=== PATIENT | female | born 1945 | race Caucasian/White ===

== ENCOUNTER 2019-05-15 19:36 | Emergency (ER) | payer MEDICARE, OTHER ==
[~2019-05-15] VITALS: Ht 162.5 cm; Wt 91.8 kg
--- NOTE | 2019-05-15 19:59 | ED Lower Extremity ---
General Chief Complaint: Trauma-Non Activation Stated Complaint: FELL Source: patient History of Present Illness Date Seen by Provider: May 15, 2019 Time Seen by Provider: 19:59 Initial Comments 73-year-old female presenting with complaints of swelling and blisters to the right big toe. She was flying back from [facility] yesterday and had ac cidentally stubbed her toe getting on the plane. In the process she has had some swelling to the right toe. She was not having any severe pain with this. She does have bruising to the right toe and some swelling. She is diabetic and had noticed that tonight after being up on her feet all day she had 2 large blisters that have formed on her big toe in addition to the bruising and swelling. She is still was not having any pain in the toe. She was concerned about infection due to her diabetes so she came to the emergency department. She has no redness or streaking up her foot. There is no drainage from the blisters. Allergies and Home Medications Allergies Coded Allergies: acetaminophen (Verified Allergy, Unknown, 05/15/19) codeine (Verified Allergy, Unknown, 05/15/19) ibuprofen (Verified Allergy, Unknown, 05/15/19) Patient Home Medication List Home Medication List Reviewed: Yes Review of Systems Constitutional: No chills, No fever, No malaise EENTM: no symptoms reported Respiratory: no symptoms reported Cardiovascular: no symptoms reported Gastrointestinal: no symptoms reported Genitourinary: no symptoms reported Musculoskeletal: see HPI Skin: see HPI Psychiatric/Neurological: Denies Weakness Past Cnxhmnl-Ztwsib-Vczjgw Hx Past Med/Social Hx: Reviewed Nursing Past Med/Soc Hx Patient Social History Recent Foreign Travel: No Contact w/Someone Who Travel: No Past Medical History Respiratory: No Hypertension Neurological: Yes Endocrine: Yes Diabetes, Insulin dep Physical Exam Vital Signs Vital Signs - First Documented 05/15/19 19:46 Temp 36.3 Pulse 84 Resp 18 B/P (MAP) 187/89 (121) Pulse Ox 96 O2 Delivery Room Air Capillary Refill : Height, Weight, BMI Height: '" Weight: lbs. oz. kg; BMI Method: General Appearance: WD/WN, no apparent distress Cardiovascular: normal peripheral pulses, regular rate, rhythm Feet: right foot non-tender, right foot normal range of motion, right foot ecchymosis (especially to the right big toe), right foot swelling (right big toe and MTP joint where she has bruising.), right foot other (to fluid-filled blisters between right big toe and 2nd toe. No erythema or streaking around them. No purulence or fluctuance noted.) Neurologic/Psychiatric: alert, normal mood/affect, oriented x 3 Skin: warm/dry, ecchymosis (right big toe and MTP joint area) Progress/Results/Core Measures Results/Orders My Orders Orders - BESSY PITTS MD Toe(S) (05/15/19 20:15) Vital Signs/I&O 05/15/19 05/15/19 19:46 21:13 Temp 36.3 36.3 Pulse 84 84 Resp 18 18 B/P (MAP) 187/89 (121) 187/89 (121) Pulse Ox 96 96 O2 Delivery Room Air Progress Progress Note #1: Progress Note Obtain x-ray of the right big toe to evaluate for possible occult fracture. Progress Note #2: Progress Note Arthritic changes are seen but no obvious occult fracture. Will treat with a postop shoe to keep pressure off of the swollen big toe and the blisters. Counseled on wound care of the blisters and toe watch for signs of infection. Diagnostic Imaging Diagonstic Imaging: Xray Plain Films/CT/US/NM/MRI: other (toe) Comments NAME: ERNESTINE LEWIS [facility] REC#: [id number] PT STATUS: REG ER : 1945 PHYSICIAN: BESSY PITTS MD ADMIT DATE: 05/15/19/ER FS Draft Date of Exam:05/15/19 TOE(S) INDICATION: Pain COMPARISON: None available TECHNIQUE: 3 radiographs of the right foot toes dated 05/15/2019 FINDINGS: No acute fracture or dislocation. No destructive osseous process. 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 No suspicious radiopaque foreign body. 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 Dictated on workstation # [id number] Dict: 05/15/192024 Trans: 05/15/19 Milo PIERCE [id number] Interpreted by: KING OSWALD MD Electronically signed by: Departure Impression Primary Impression: Contusion of right great toe without damage to nail, initial encounter Additional Impression: Blister of toe of right foot without infection Qualified Codes: S90.424A - Blister (nonthermal), right lesser toe(s), initial encounter Disposition: 01 HOME, SELF-CARE Condition: Stable Departure-Patient Inst. Decision time for Depature: 21:05 Referrals: SEAN VASQUEZ APRN (PCP/Family) Primary Care Physician Patient Instructions: Blisters, Toe Injury (DC) Add. Discharge Instructions: Use the post op shoe on right foot to keep from putting pressure on your big toe until the blisters have healed. If you see redness streaking up your foot or have pus draining from your toe and the blisters then follow up with clinic or return to be started on antibiotics Keep the blisters and the area on your toe clean with soap and water. Apply antibiotic ointment 2-3 times a day and may apply a non stick dressing to the blisters and spot on your toe to help keep it from getting infected. All discharge instructions reviewed with patient and/or family. Voiced understanding. Images Extremities-Lower 1 - Other-See Progress Note (area of 2 blisters between Big toe and 2nd toe on right foot) BESSY PITTS MD May 15, 2019 19:59
--- NOTE | 2019-05-15 20:30 | Diagnostic Imaging Report ---
INDICATION: Pain COMPARISON: None available TECHNIQUE: 3 radiographs of the right foot toes dated 05/15/2019 FINDINGS: No acute fracture or dislocation. No destructive osseous process. 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 No suspicious radiopaque foreign body. 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 Dictated by: Dictated on workstation # [id number]
[2019-05-15 21:13] VITALS: BP 187/89
== END 2019-05-15 21:13 | disposition home or self-care (01) ==
LOC: ER FS 19:39
DX: S90.111A Contusion of right great toe without damage to nail, initial encounter (principal); S90.421A Blister (nonthermal), right great toe, initial encounter; I10 Essential (primary) hypertension; Z88.6 Allergy status to analgesic agent; Z88.5 Allergy status to narcotic agent; W22.8XXA Striking against or struck by other objects, initial encounter
CPT/HCPCS: 73660

== ENCOUNTER → 2020-02-15 | Outpatient (CLI) | payer MEDICARE, OTHER ==
--- NOTE | 2020-02-15 14:02 | Diagnostic Imaging Report ---
PROCEDURE: CT head without contrast. TECHNIQUE: Multiple contiguous axial images were obtained through the brain without the use of intravenous contrast. Auto Exposure Controls were utilized during the CT exam to meet ALARA standards for radiation dose reduction. INDICATION: Double vision for one week. COMPARISON: No prior studies are available for comparison. FINDINGS: The ventricles and sulci are appropriate for the patient's age. No sulcal effacement or midline shift is identified. No acute intra-axial or extra-axial hemorrhage is detected. Cisterns are patent. Visualized paranasal sinuses are clear. IMPRESSION: No acute intracranial process is detected. Dictated by: Dictated on workstation # [id number]
== END ==
LOC: RAD FS 13:01
PROVIDERS: ATTEND Nurse Practitioner Family
DX: H53.2 Diplopia (principal)
CPT/HCPCS: 70450

== ENCOUNTER 2023-01-11 07:50 | Day surgery (SDC) | payer MEDICARE, OTHER ==
--- NOTE | 2022-12-29 03:15 | HISTORY AND PHYSICAL ---
COLONOSCOPY HISTORY AND PHYSICAL HISTORY OF PRESENT ILLNESS: The patient is a pleasant 77-year-old white female referred by Amelia Patricio APRN, at [facility], for screening colonoscopy. She is deemed to be of higher than average risk because she reports family history for colon cancer, index case being her grandfather. She has had one other colonoscopy done over 10 years ago that she recalls was unremarkable. She denies any change in bowel habits. She has been told that she has irritable bowel syndrome and has fluctuated between loose stools and constipation, but nothing that has been out of the ordinary for her. She has had no melena or bright red blood per rectum and denies any significant change in weight. PAST MEDICAL HISTORY: Pertinent for type 2 diabetes for which she takes 4.5 mg of Trulicity weekly, hypertension and hyperlipidemia with no known history of coronary artery disease. Other medications include atorvastatin 40 mg daily, lisinopril 5 mg daily, L-thyroxine 100 mcg daily, 81 mg Rosalba aspirin daily for possible TIA, presenting as double vision in 2019 and she also takes zolpidem at bedtime on a p.r.n. basis and vitamin D3. PAST SURGICAL HISTORY: Significant for cholecystectomy and appendectomy in the past. She had reverse right total shoulder replacement in 2017 and a total abdominal hysterectomy for reported benign reasons a number of years ago. REVIEW OF SYSTEMS: CONSTITUTIONAL: Denies night sweats, chills, fever or change in weight. GASTROINTESTINAL: As noted in the HPI. PULMONARY: Denies cough, wheezing or shortness of breath. CARDIOVASCULAR: Denies chest pain, orthopnea, PND, or pedal edema. PHYSICAL EXAMINATION: GENERAL: Reveals a white female, appeared to be in no acute distress. VITAL SIGNS: Weight 187 pounds, blood pressure 130/82. HEENT: Unremarkable. Sclerae are nonicteric. CHEST: Clear to auscultation. ABDOMEN: Soft, supple without mass, organomegaly, or tenderness. EXTREMITIES: Revealed no cyanosis, clubbing or edema. ASSESSMENT AND PLAN: The patient is being set up for screening colonoscopy, deemed to be of higher than average risk due to family history for colon cancer. She will hold her aspirin 1 week prior to the procedure, continuing her other medications. Prep instructions were given and questions were answered. I thank you for the referral of this pleasant lady. Job ID: [id number] DocumentID: [id number] Dictated Date: 12/20/2022 15:35:45 [place] Secretary Date: 12/20/2022 16:40:00 Dictated By: MELINDA MONREAL MD
[~2023-01-11] VITALS: Ht 162.6 cm; Wt 85.0 kg
[~2023-01-11 07:50] MED LIST: ASPI-1238 PO; ATOR40TA70 PO; DULA4.5P SQ; LEVO100C4 PO; LISI5TAB20 PO; ZOLP5TAB PO
[2023-01-11] MEDS ORDERED: LACTATED RINGERS 1,000 ML 1,000 ML IV STA (07:57)
--- NOTE | 2023-01-11 08:22 | Pre-Op Note & Conscious Sedat ---
Pre-Operative Progress Note Date H&P Reviewed: Jan 11, 2023 Time H&P Reviewed: 08:21 History & Physical: H&P Reviewed, Patient Examed, No changes noted Pre-Op Diagnosis: screening Moderate Sedation PreProcedure ASA Score 2 Airway Lungs Heart ASA score ASA 1: a normal healthy patient ASA 2: a patient with a mild systemic disease (mid diabetes, controlled hypertension, obesity ASA 3: a patient with a severe systemic disease that limits activity (angina, COPD, prior Myocardial infarction) ASA 4: a patient with an incapacitating disease that is a constant threat to life (CHF, renal failure) ASA 5: a moribund patient not expected to survive 24 hrs. (ruptured aneurysm) ASA 6: a declared brain- patient whose organs are being harvested. For emergent operations, add the letter E after the classification Mallampati Classification Grade 2 Sedation Plan Analgesia, Amnesia, Plan communicated to team members, Discussed options with patient/fam, Discussed risks with patient/fam The patient is an appropriate candidate to undergo the planned procedure, sedation, and anesthesia. The patient immediately re-assessed prior to indication. MELINDA MONREAL MD Jan 11, 2023 08:22
[2023-01-11] MEDS ORDERED: TRAM50TA3 PO (09:05)
[2023-01-11 09:11] VITALS: BP 165/79
[2023-01-11 09:35] VITALS: BP 110/59
[2023-01-11 09:40] VITALS: BP 119/71
--- NOTE | 2023-01-11 09:40 | Progress Note-Post Operative ---
Post-Procedure Note Physician (s)/Trauma Manager (s) Physician MELINDA MONREAL MD Pre-Procedure Diagnosis Pre-Procedure Diagnosis: screening Post-Procedure Diagnosis Post-operative diagnosis: Prior to undergoing colonoscopy digital rectal evaluation was performed. Anal sphincter tone was normal and the perianal reflexes intact. No abnormalities noted on digital inspection of the anal canal or distal rectal vault. The colonoscope was then inserted into the rectum and under direct visualization advanced to the cecum. The cecum was identified by the indication of the appendiceal orifice and the ileocecal valve. Photographic documentation was obtained. Careful inspection was made as the colonoscope withdrawn. Quality the prep was good. Findings: There are no evidence for internal/external hemorrhoids and the rectum was unremarkable. Present the rectosigmoid junction was a 4 mm sessile adenomatous appearing polyp it was biopsied and ablated with several drop blood loss. Her to severe diverticular disease was present sigmoid colon with scattered small diverticula in the descending and transverse colon as well without evidence for diverticulitis. No other abnormalities noted in the sections of the colon. These hepatic flexure was unremarkable. Present the mid sigmoid colon was another 4 mm sessile adenomatous appearing polyp it was biopsied and ablated with no blood loss. A similar polyp was noted in the cecum biopsied and ablated as well with no blood loss all with the use of hot forceps. A/P 1. 3 diminutive polyps removed via hot forceps from the rectosigmoid junction mid ascending colon and cecum. As long as there are no surprises on histopathology report considering this patient's age and medical comorbidities and moderate to severe diverticular disease I would not advocate future surveillance colonoscopy. 2. Moderate to severe diverticular disease predominantly in the sigmoid colon was present but several small medium sized diverticulum were noted in the descending and transverse colon as well without evidence for diverticulitis. I thank you for the furl this pleasant lady sincerely Melinda Monreal MD. CC: Amelia Patricio, [facility] MELINDA MORNEAL MD Jan 11, 2023 09:40
--- NOTE | 2023-01-11 10:26 | Anesthesia-General Post-Op ---
MAC Patient Condition Mental Status/LOC: Same as Preop Cardiovascular: Satisfactory Nausea/Vomiting: Absent Respiratory: Satisfactory Pain: Controlled Complications: Absent Post Op Complications Complications None Follow Up Care/Instructions Patient Instructions None needed. Anesthesiology Discharge Order Discharge Order Patient is doing well, no complaints, stable vital signs, no apparent adverse anesthesia problems. No complications reported per nursing. TANVIR BRAVO CRNA Jan 11, 2023 10:26
[2023-01-11 10:30] VITALS: BP 119/71
== END 2023-01-11 10:30 | disposition home or self-care (01) ==
LOC: ENDO 07:50
PROVIDERS: ATTEND Internal Medicine
DX: Z12.11 Encounter for screening for malignant neoplasm of colon (principal); D12.0 Benign neoplasm of cecum; D12.2 Benign neoplasm of ascending colon; D12.8 Benign neoplasm of rectum; K57.30 Diverticulosis of large intestine without perforation or abscess without bleeding; E11.9 Type 2 diabetes mellitus without complications; Z79.85 Long-term (current) use of injectable non-insulin antidiabetic drugs
CPT/HCPCS: 82947